=== PATIENT | female | born 1945 | race Two or more races ===

== ENCOUNTER → 2017-02-24 | Outpatient (CLI) | payer MEDICARE ==
[~2017-02-24] MED LIST: ASPI-482 PO; ATOR20TA58 PO; GLIM4TAB2 PO; INSU100C SQ; INSU300I SQ; LISI1TAB5 PO; METO25TA4 PO
[2017-02-24 12:32] LABS: BASO % 0 % (0-3); EOS % 2 % (0-3); HEMATOCRIT 39.9 % (36.0-47.0); LYMPH % 28 % (24-48); MEAN CORPUSCULAR HEMOGLOBIN 27 pg (25-35); MEAN CORPUSCULAR HGB CONC 33 g/dL (31-37); MEAN CORPUSCULAR VOLUME 84 fL (79-100); MONO % 7 % (0-9); NEUT % 63 % (31-73); PLATELET COUNT 190 x10^3/uL (140-400); RED BLOOD COUNT 4.73 x10^6/uL (3.50-5.40); RED CELL DISTRIBUTION WIDTH 15.8 % (11.5-14.5); WHITE BLOOD COUNT 7.1 x10^3/uL (4.0-11.0)
[2017-02-24 12:43] LABS: INR 1.1 (0.8-1.1); PROTHROMBIN TIME PATIENT 13.2 SEC (11.7-14.0)
[2017-02-24 12:44] LABS: ALBUMIN 3.2 g/dL (3.4-5.0); CALCIUM 8.6 mg/dL (8.5-10.1); CREATININE 0.9 mg/dL (0.6-1.0); GFR 61.2; POTASSIUM 3.3 mmol/L (3.5-5.1)
[2017-02-24 13:52] LABS: BILIRUBIN,URINE NEGATIVE (NEG); GLUCOSE,URINE NEGATIVE (NEG); NITRITE,URINE POSITIVE (NEG); PROTEIN,URINE NEGATIVE (NEG-TRACE); UROBILINOGEN,URINE 0.2 mg/dL (0.2 mg/dL)
--- NOTE | 2017-02-24 13:58 | RAD ---
PA and lateral views of the chest were obtained. History: Pre-op evaluation for right shoulder surgery Comparison: none The heart and pulmonary vasculature appear within normal limits. The lungs are clear. The pleural margins are clear. Impression: 1. No acute chest process is seen.
[2017-02-24 14:06] LABS: RBC,URINE 0 /HPF (0-2); WBC,URINE RARE /HPF (0-4)
[2017-02-24 14:07] LABS: BACTERIA,URINE FEW /HPF (0-FEW); SQUAMOUS EPITHELIAL CELL,UR FEW /LPF
== END | disposition home or self-care (01) ==
LOC: SURGPAT 11:36
PROVIDERS: ATTEND Orthopaedic Surgery
DX: Z01.818 Encounter for other preprocedural examination (principal)
CPT/HCPCS: 36415; 71020; 80048; 81001; 82040; 83036; 85025; 85610; 85651; 85730; 87086; 87641

== ENCOUNTER 2017-11-05 14:45 | Inpatient (IN) | payer MEDICARE ==
[~2017-11-05] VITALS: Ht 154.9 cm; Wt 94.8 kg
[2017-11-05 16:00] VITALS: BP 124/46
[2017-11-05] MEDS ORDERED: fentaNYL PF VIAL 100 MCG/2 ML VIAL IV PRN ×2 (16:30)
[2017-11-05] MEDS ORDERED: DEXTROSE 50% 25 GM / 50ML DISP.SYRIN. IV PRN (16:30)
[2017-11-05] MEDS: IV 1/2 NORMAL SALINE 1,000 ML IV SCH (16:51)
--- NOTE | 2017-11-05 17:26 | PDOC5 ---
CODE REPORT CODE REPORT I was called to the fifth floor for a CODE BLUE at approximately 5 PM Eyes patient received 50 g of fentanyl and then promptly lost consciousness. Never lost pulse. Apparently was not breathing very well. On my evaluation patient did have small pupils not quite pinpoint but they were small she did have some respiratory effort checked a blood sugar it was not low. The blood pressure was elevated in the 180s. placed on supplmeental oxygen the sat was 98 on nrb. EKG was done on the chart no STEMI was identified on that EKG interpreted by me. It was a sinus rhythm most likely with a PVC. Patient was given 2 doses of Narcan and actually did wake up some she was able to say her birthday can follow some commands. On further evaluation with the family it is apparent that she had a seizure history in the remote past in one family member that witnessed this event thought that there might of been some seizure activity. As of this dictation I have asked nursing staff to page primary [facility]. ECHO MYRICK MD Nov 05, 2017 17:26
[2017-11-05 17:44] LABS: BASO # 0.1 x10^3/uL (0.0-0.2); BASO % 1 % (0-3); EOS # 0.1 x10^3/uL (0.0-0.7); EOS % 1 % (0-3); HEMATOCRIT 38.2 % (36.0-47.0); HEMOGLOBIN 12.5 g/dL (12.0-15.5); LYMPH # 1.7 x10^3/uL (1.0-4.8); LYMPH % 12 % (24-48); MEAN CORPUSCULAR HEMOGLOBIN 28 pg (25-35); MEAN CORPUSCULAR HGB CONC 33 g/dL (31-37); MEAN CORPUSCULAR VOLUME 85 fL (79-100); MONO # 1.1 x10^3/uL (0.0-1.1); MONO % 8 % (0-9); NEUT # 10.8 x10^3uL (1.8-7.7); NEUT % 79 % (31-73); PLATELET COUNT 203 x10^3/uL (140-400); RED BLOOD COUNT 4.51 x10^6/uL (3.50-5.40); WHITE BLOOD COUNT 13.8 x10^3/uL (4.0-11.0)
[2017-11-05 17:57] LABS: ALBUMIN/GLOBULIN RATIO 0.7 (1.0-1.7); CALCIUM 9.2 mg/dL (8.5-10.1); CREATININE 1.2 mg/dL (0.6-1.0); GFR 43.9; POTASSIUM 3.8 mmol/L (3.5-5.1); TOTAL BILIRUBIN 0.6 mg/dL (0.2-1.0); TOTAL PROTEIN 7.4 g/dL (6.4-8.2)
[2017-11-05] MEDS ORDERED: IOHEXOL 240 MG/ML 50ML VIAL. PO ONE ×2 (18:00→19:00)
[2017-11-05] MEDS ORDERED: IOHEXOL 300 MG/ML 100ML VIAL. IV ONE ×2 (18:00→19:00)
--- NOTE | 2017-11-05 18:44 | HP ---
ADMIT DATE: 11/05/2017 CHIEF COMPLAINT AND HISTORY OF PRESENT ILLNESS: This is a 72-year-old female seen with her on the day of admission. She had been having symptoms going back in the last week of some urinary frequency, urgency and dysuria over the last day or a couple of days, she has become sick with chilling and sweating, decreased appetite and severe left flank area pain. Dipstick UA in the office showed minimal blood, but high amounts of leukocyte esterase and nitrites feeling that this was a pyelonephritis. I warned her and her that if she was not able to keep the medicines down home and doing well to call me, they did shortly thereafter within a couple or 3 hours. It was elected to admit her for IV fluids, IV antibiotics and further workup of the same. PAST MEDICAL HISTORY: Remarkable for longstanding diabetes. She has severe neuropathy. She has had a nonsignificant coronary artery disease. PAST SURGICAL HISTORY: She has had a prior right rotator cuff repair and a left shoulder surgery. She has had a right total knee replacement. She has chronic back pain. She has had some vertigo off and on. MEDICATIONS: Brought with the patient, listed on the computer and have been addressed. ALLERGIES: She has no known drug allergies. SOCIAL HISTORY: She is , nonsmoker, nondrinker, lives at home with her , does not abuse alcohol. FAMILY HISTORY: Noncontributory. REVIEW OF SYSTEMS: As mentioned above. PHYSICAL EXAMINATION: GENERAL: She is a well-developed, well-nourished, female in significant amount of pain. VITAL SIGNS: Stable. She is afebrile. THROAT: Remarkable for glasses. NECK: Supple without adenopathy or thyromegaly. CHEST: Clear to auscultation and percussion. HEART: Regular rate and rhythm without S3, S4 or murmur. ABDOMEN: Soft, nontender, without hepatosplenomegaly or masses. She has marked left flank tenderness. EXTREMITIES: Without cyanosis, clubbing, significant edema. NEUROLOGIC: She is intact. LABORATORY DATA: Initial laboratory shows a leukocytosis with a left shift. Her white count is 13,800. Chemistry showed creatinine of 1.2, blood sugar of 214, albumin of 3. A urinalysis is pending. IMPRESSION: Severe left flank pain, likely pyelonephritis. PLAN: The patient will be admitted. The hydration and IV antibiotics will be obtained after UA and culture and sensitivity is obtained. Pain will be controlled and the patient will be monitored, managed and treated appropriately. GERI ANGUIANO MD DR: ENRICO/jessica JOB#: [id number] / [id number]
[2017-11-05] MEDS: INSULIN LISPRO 300 UNITS/3 ML INSULN.PEN. SQ SCH (18:49)
[2017-11-05 19:00] VITALS: BP 137/54
[2017-11-05] MEDS ORDERED: CONTRAST GIVEN. MC PRN (19:00)
[2017-11-05] MEDS ORDERED: NITR0.4T22 SL (19:57)
[2017-11-05] MEDS ORDERED: NITROGLYCERIN SUBLINGUAL 0.4 MG BOTTLE OF 25. SL PRN (20:15)
--- NOTE | 2017-11-05 20:59 | RAD ---
PQRS Compliance statement: One or more of the following individualized dose reduction techniques were utilized for this examination: 1. Automated exposure control. 2. Adjustment of the mA and/or kV according to patient size. 3. Use of iterative reconstruction technique. Indication:POST CODE POSSIBLE SEIZURE NO PREV TECHNIQUE: CT head without IV contrast COMPARISON:None FINDINGS: No pathologic extra-axial or intra-axial fluid collection. The ventricles and basal cisterns are within normal limits. Mild cerebral atrophy. No acute intracranial bleed. No focal loss of rodriguez-white differentiation. Significant atherosclerotic disease is seen in the distal basilar artery. No suspicious calvarial lesions. Visualized paranasal sinuses and mastoid air cells are clear. IMPRESSION: No acute intracranial process. If concern for acute ischemic stroke is high, please consider MRI brain. Electronically signed by: Mundo Wong DO (11/05/2017 8:56 PM) [facility]
--- NOTE | 2017-11-05 21:05 | RAD ---
PQRS Compliance statement: One or more of the following individualized dose reduction techniques were utilized for this examination: 1. Automated exposure control. 2. Adjustment of the mA and/or kV according to patient size. 3. Use of iterative reconstruction technique. Indication:POST CODE POSSIBLE SEIZURE NO PREV N/V TECHNIQUE: CT abdomen and pelvis with IV contrast with multiplanar reformats. COMPARISON: None FINDINGS: Heart is normal in size. No pericardial or pleural effusion. Mild bibasilar subsegmental atelectasis. Liver, spleen, pancreas, adrenals within normal limits. Right kidney within normal limits. 1.4 cm oval-shaped nonobstructing stone is seen in the inferior collecting system of the left kidney. Left kidney demonstrates diffuse edema with mild dilation of the collecting system. Nonobstructing left ureteral stone. Perinephric inflammatory changes seen. No enlarged retroperitoneal or pelvic adenopathy. Normal appendix. No bowel obstruction. Diffuse sigmoid and descending colon diverticulosis. No pneumoperitoneum. Urinary bladder within normal limits. Status post hysterectomy. No suspicious bony lesion. IMPRESSION: 1. Nonobstructing large left renal stone with diffuse left renal edema and perinephric inflammation with dilated collecting system without obstructing left ureteral stone. Findings may suggest recently passed stone or diffuse pyelonephritis. Clinically correlate. Electronically signed by: Mundo Wong DO (11/05/2017 9:02 PM) [facility]
[2017-11-05] MEDS: HYDROcodone/APAP 5/325MG 1 TAB TABLET PO PRN (21:27)
[2017-11-05] MEDS: ATORVASTATIN CALCIUM 20 MG TABLET PO SCH (21:27)
[2017-11-05] MEDS: METOPROLOL TART IMMED RELEASE 25 MG TABLET. PO SCH (21:27)
[2017-11-05 22:28] LABS: BILIRUBIN,URINE NEGATIVE (NEG); CLARITY,URINE CLEAR; COLOR,URINE YELLOW; NITRITE,URINE POSITIVE (NEG); PROTEIN,URINE NEGATIVE (NEG-TRACE)
[2017-11-05 22:36] LABS: BACTERIA,URINE FEW /HPF (0-FEW); RBC,URINE TNTC /HPF (0-2); SQUAMOUS EPITHELIAL CELL,UR FEW /LPF
[2017-11-05 23:00] VITALS: BP 136/58
[2017-11-06] VITALS (9 sets, daily range): BP systolic 76–139; BP diastolic 35–93
[2017-11-06] MEDS: IV 1/2 NORMAL SALINE 1,000 ML IV SCH ×2 (05:58→21:45)
[2017-11-06] MEDS: ASPIRIN ENTERIC COATED 81 MG TABLET.DR. PO SCH (08:31)
[2017-11-06] MEDS: GLIMEPIRIDE 2 MG TABLET. PO SCH (08:31)
[2017-11-06] MEDS: HYDROcodone/APAP 5/325MG 1 TAB TABLET PO PRN (08:35)
[2017-11-06] MEDS: INSULIN LISPRO 300 UNITS/3 ML INSULN.PEN. SQ SCH ×3 (08:41→17:08)
[2017-11-06] MEDS: INSULIN GLARGINE 300 UNITS/3 ML INSULN.PEN. SQ SCH (09:24)
[2017-11-06] MEDS: hydroCHLOROthiazide 12.5 MG CAPSULE PO SCH (11:48)
[2017-11-06] MEDS: METOPROLOL TART IMMED RELEASE 25 MG TABLET. PO SCH ×2 (11:49→21:00)
[2017-11-06] MEDS: LISINOPRIL 20 MG TABLET PO SCH (11:50)
--- NOTE | 2017-11-06 13:15 | PN ---
DATE: 11/06/2017 LOCATION: She is in room 586. SUBJECTIVE: The patient is awake and alert. Family is at bedside. She states that her pain has definitely decreased from admission, but still is not good. OBJECTIVE: VITAL SIGNS: Stable. She has had a T-max of 99.9. CHEST: Clear. HEART: Regular. ABDOMEN: Benign, but still significant left flank tenderness. LABORATORY DATA: White count is 13,800 on admission. Sugars are fair. Urine on admission consistent with UTI. She did have a spell yesterday after fentanyl, likely related to it, with decreased level of responsiveness. She had a CT head afterwards. It is negative and she is at her baseline for sure today. CT of the abdomen and pelvis showed left renal edema, consistent with either stone or pyelonephritis. Clinically, this is pyelonephritis, although she does have a large non-obstructive stone present in addition. IMPRESSION: 1. Pyelonephritis with severe left flank pain. 2. Diabetes. 3. Leukocytosis. PLAN: Continue present antibiotics pending cultures. I feel like she has improved; so hopefully, we have her on good coverage for the same. Pain control as needed with hydrocodone, which she is tolerating and the patient will be monitored, managed and treated appropriately. GERI ANGUIANO MD DR: ENRICO/jessica JOB#: [id number] / [id number]
[2017-11-06] MEDS: ONDANSETRON PF 4 MG/2 ML VIAL. IV PRN (15:51)
[2017-11-06] MEDS: ACETAMINOPHEN 325 MG TABLET. PO PRN (19:33)
[2017-11-06] MEDS: LACTOBACILLUS RHAMNOSUS GG 1 CAPSULE. PO SCH (20:41)
[2017-11-06] MEDS: ATORVASTATIN CALCIUM 20 MG TABLET PO SCH (20:41)
[2017-11-07 03:00] VITALS: BP 91/50
[2017-11-07 07:00] VITALS: BP 127/61
[2017-11-07] MEDS: INSULIN LISPRO 300 UNITS/3 ML INSULN.PEN. SQ SCH ×3 (08:00→16:26)
[2017-11-07] MEDS: ACETAMINOPHEN 325 MG TABLET. PO PRN ×2 (08:11→17:49)
[2017-11-07] MEDS: GLIMEPIRIDE 2 MG TABLET. PO SCH (08:12)
[2017-11-07] MEDS: ASPIRIN ENTERIC COATED 81 MG TABLET.DR. PO SCH (08:12)
[2017-11-07] MEDS: LACTOBACILLUS RHAMNOSUS GG 1 CAPSULE. PO SCH ×2 (08:14→20:55)
[2017-11-07] MEDS: IV 1/2 NORMAL SALINE 1,000 ML IV SCH ×2 (08:15→22:07)
[2017-11-07] MEDS: INSULIN GLARGINE 300 UNITS/3 ML INSULN.PEN. SQ SCH (08:27)
[2017-11-07] MEDS: hydroCHLOROthiazide 12.5 MG CAPSULE PO SCH (09:00)
[2017-11-07] MEDS: LISINOPRIL 20 MG TABLET PO SCH (09:00)
[2017-11-07] MEDS: METOPROLOL TART IMMED RELEASE 25 MG TABLET. PO SCH ×2 (09:00→20:56)
[2017-11-07] MEDS: HYDROcodone/APAP 5/325MG 1 TAB TABLET PO PRN ×2 (10:20→22:08)
[2017-11-07 11:55] VITALS: BP 104/48
[2017-11-07 15:50] VITALS: BP 125/45
[2017-11-07 19:00] VITALS: BP 105/43
[2017-11-07] MEDS: ATORVASTATIN CALCIUM 20 MG TABLET PO SCH (20:55)
--- NOTE | 2017-11-07 21:44 | PN ---
DATE: 11/07/2017 LOCATION: She is in room 586. SUBJECTIVE: The patient is awake, alert. Family is at bedside, daughter has many questions and approximately 30 minutes were spent at bedside answering daughter's questions regarding her pyelonephritis and why she would have headaches with this and myalgias with this. We went through her neuropathy. We went through her balance. We went through her longstanding history of not taking her medicines right and obviously she and her are confused on what medications they should be taking. Hopefully, this was a productive use of time. OBJECTIVE: VITAL SIGNS: Stable. T-max is 100. CHEST: Clear. HEART: Regular. ABDOMEN: With ongoing left flank tenderness, but decreasing on a daily basis. EXTREMITIES: Unremarkable. LABORATORY DATA: Urine culture is not on the computer, but I have called the lab and it is pending. It was sent out the following day due to being batched and the results will be coming in at some point. She does have decreasing pain subjectively on a daily basis, but does again have the headache as well as myalgias. ASSESSMENT: 1. Pyelonephritis, clinically improving with pending urine cultures. 2. Diabetes. 3. Leukocytosis. PLAN: Continue present antibiotics. Await final cultures with plans to follow. GERI ANGUIANO MD DR: ENRICO/jessica JOB#: [id number] / [id number]
[2017-11-07] MEDS: ONDANSETRON PF 4 MG/2 ML VIAL. IV PRN (22:08)
[2017-11-07 23:00] VITALS: BP 107/40
[2017-11-08 03:00] VITALS: BP 92/46
[2017-11-08 07:00] VITALS: BP 107/54
[2017-11-08] MEDS: LACTOBACILLUS RHAMNOSUS GG 1 CAPSULE. PO SCH ×2 (08:08→20:28)
[2017-11-08] MEDS: GLIMEPIRIDE 2 MG TABLET. PO SCH (08:08)
[2017-11-08] MEDS: ASPIRIN ENTERIC COATED 81 MG TABLET.DR. PO SCH (08:11)
[2017-11-08] MEDS: METOPROLOL TART IMMED RELEASE 25 MG TABLET. PO SCH ×2 (09:00→20:28)
[2017-11-08] MEDS: hydroCHLOROthiazide 12.5 MG CAPSULE PO SCH (09:00)
[2017-11-08] MEDS: LISINOPRIL 20 MG TABLET PO SCH (09:00)
[2017-11-08] MEDS: ACETAMINOPHEN 325 MG TABLET. PO PRN ×2 (09:19→15:00)
[2017-11-08] MEDS: INSULIN LISPRO 300 UNITS/3 ML INSULN.PEN. SQ SCH ×3 (09:27→16:55)
[2017-11-08] MEDS: INSULIN GLARGINE 300 UNITS/3 ML INSULN.PEN. SQ SCH (09:28)
[2017-11-08 11:03] VITALS: BP 96/40
--- NOTE | 2017-11-08 13:42 | PN ---
DATE: 11/08/2017 LOCATION: She is in room 586. SUBJECTIVE: The patient is awake, alert, is at bedside. She did eat part of her breakfast this morning, but still admits to anorexia, still has ongoing some myalgias as well as headache off and on. Pain in her left flank from the kidney is decreasing on a daily basis, however. OBJECTIVE: VITAL SIGNS: Stable. She has been afebrile the last 48 hours. Blood pressures remain on the low side. Sugars have been good. Urine culture is still pending. CHEST: Clear. HEART: Regular. ABDOMEN: With ongoing left flank tenderness, but less on a daily basis. EXTREMITIES: Stable. IMPRESSION: 1. Pyelonephritis, clinically improving with pending urine cultures. 2. Diabetes. 3. Leukocytosis. PLAN: Continue present antibiotics. Await final cultures to plan discharge. GERI ANGUIANO MD DR: ENRICO/jessica JOB#: [id number] / [id number]
[2017-11-08] MEDS: IV 1/2 NORMAL SALINE 1,000 ML IV SCH (14:43)
[2017-11-08 15:00] VITALS: BP 133/44
[2017-11-08 19:00] VITALS: BP 136/42
[2017-11-08] MEDS: ATORVASTATIN CALCIUM 20 MG TABLET PO SCH (20:28)
[2017-11-08] MEDS: ONDANSETRON PF 4 MG/2 ML VIAL. IV PRN (21:41)
[2017-11-08 23:00] VITALS: BP 130/44
[2017-11-09 03:00] VITALS: BP 132/60
[2017-11-09 06:55] VITALS: BP 135/58
[2017-11-09] MEDS: INSULIN LISPRO 300 UNITS/3 ML INSULN.PEN. SQ SCH ×3 (08:00→17:00)
[2017-11-09] MEDS: hydroCHLOROthiazide 12.5 MG CAPSULE PO SCH (08:26)
[2017-11-09] MEDS: LISINOPRIL 20 MG TABLET PO SCH (08:27)
[2017-11-09] MEDS: GLIMEPIRIDE 2 MG TABLET. PO SCH (08:28)
[2017-11-09] MEDS: ASPIRIN ENTERIC COATED 81 MG TABLET.DR. PO SCH (08:28)
[2017-11-09] MEDS: LACTOBACILLUS RHAMNOSUS GG 1 CAPSULE. PO SCH ×2 (08:28→20:07)
[2017-11-09 08:34] LABS: BASO # 0.1 x10^3/uL (0.0-0.2); BASO % 1 % (0-3); EOS # 0.3 x10^3/uL (0.0-0.7); EOS % 4 % (0-3); HEMATOCRIT 32.2 % (36.0-47.0); LYMPH # 2.5 x10^3/uL (1.0-4.8); LYMPH % 29 % (24-48); MEAN CORPUSCULAR HEMOGLOBIN 29 pg (25-35); MEAN CORPUSCULAR HGB CONC 34 g/dL (31-37); MEAN CORPUSCULAR VOLUME 84 fL (79-100); MONO # 0.9 x10^3/uL (0.0-1.1); MONO % 10 % (0-9); NEUT # 4.9 x10^3uL (1.8-7.7); NEUT % 56 % (31-73); PLATELET COUNT 198 x10^3/uL (140-400); RED BLOOD COUNT 3.83 x10^6/uL (3.50-5.40); RED CELL DISTRIBUTION WIDTH 14.9 % (11.5-14.5); WHITE BLOOD COUNT 8.8 x10^3/uL (4.0-11.0)
[2017-11-09] MEDS: IV 1/2 NORMAL SALINE 1,000 ML IV SCH ×2 (08:34→13:50)
[2017-11-09 08:46] LABS: CALCIUM 8.2 mg/dL (8.5-10.1); CREATININE 0.9 mg/dL (0.6-1.0); GFR 61.2; POTASSIUM 3.2 mmol/L (3.5-5.1)
[2017-11-09 11:00] VITALS: BP 154/32
[2017-11-09] MEDS: METOPROLOL TART IMMED RELEASE 25 MG TABLET. PO SCH ×2 (12:13→20:10)
[2017-11-09] MEDS: INSULIN GLARGINE 300 UNITS/3 ML INSULN.PEN. SQ SCH (12:22)
[2017-11-09] MEDS ORDERED: POTASSIUM CHLORIDE 20 MEQ TABLET.ER. PO ONE (13:30)
[2017-11-09 15:55] VITALS: BP 124/40
[2017-11-09 19:00] VITALS: BP 131/40
[2017-11-09] MEDS: ATORVASTATIN CALCIUM 20 MG TABLET PO SCH (20:07)
[2017-11-09 23:00] VITALS: BP 129/46
--- NOTE | 2017-11-10 00:25 | PN ---
DATE: 11/09/2017 SUBJECTIVE: The patient is awake, alert. is at bedside. She is just finishing breakfast and feels like for the first time in a couple of weeks, she had an appetite. She is a little bit nauseated after eating. Her pain continues to improve on a daily basis in the left flank area. OBJECTIVE: VITAL SIGNS: Stable. She is afebrile. Sugars are good. Initial urine culture is looking like greater than 100,000 coagulase negative staph. CHEST: Clear. HEART: Regular. ABDOMEN: Flank with decreasing tenderness on a daily basis. ASSESSMENT: 1. Pyelonephritis, clinically improving with pending cultures. 2. Diabetes. 3. Leukocytosis. PLAN: Continue present antibiotics. Await final cultures. We will recheck labs in the morning prior to hopefully discharge and will expect to have final cultures back by then hopefully GERI ANGUIANO MD DR: ENRICO/jessica JOB#: [id number] / [id number]
[2017-11-10] MEDS: HYDROcodone/APAP 5/325MG 1 TAB TABLET PO PRN (01:16)
[2017-11-10] MEDS: IV 1/2 NORMAL SALINE 1,000 ML IV SCH ×2 (01:17→16:30)
[2017-11-10 03:00] VITALS: BP 133/49
[2017-11-10 07:00] VITALS: BP 128/53
[2017-11-10] MEDS: hydroCHLOROthiazide 12.5 MG CAPSULE PO SCH (08:37)
[2017-11-10] MEDS: LISINOPRIL 20 MG TABLET PO SCH (08:37)
[2017-11-10] MEDS: METOPROLOL TART IMMED RELEASE 25 MG TABLET. PO SCH ×2 (08:37→20:26)
[2017-11-10] MEDS: LACTOBACILLUS RHAMNOSUS GG 1 CAPSULE. PO SCH ×2 (08:37→20:26)
[2017-11-10] MEDS: GLIMEPIRIDE 2 MG TABLET. PO SCH (08:38)
[2017-11-10] MEDS: INSULIN LISPRO 300 UNITS/3 ML INSULN.PEN. SQ SCH ×3 (08:42→16:58)
[2017-11-10] MEDS: INSULIN GLARGINE 300 UNITS/3 ML INSULN.PEN. SQ SCH (08:43)
[2017-11-10 10:53] LABS: BASO # 0.1 x10^3/uL (0.0-0.2); BASO % 1 % (0-3); EOS # 0.2 x10^3/uL (0.0-0.7); EOS % 4 % (0-3); HEMATOCRIT 31.8 % (36.0-47.0); HEMOGLOBIN 10.7 g/dL (12.0-15.5); LYMPH # 1.9 x10^3/uL (1.0-4.8); LYMPH % 30 % (24-48); MEAN CORPUSCULAR HEMOGLOBIN 29 pg (25-35); MEAN CORPUSCULAR HGB CONC 34 g/dL (31-37); MEAN CORPUSCULAR VOLUME 85 fL (79-100); MONO # 0.7 x10^3/uL (0.0-1.1); MONO % 11 % (0-9); NEUT # 3.5 x10^3uL (1.8-7.7); NEUT % 54 % (31-73); PLATELET COUNT 197 x10^3/uL (140-400); RED BLOOD COUNT 3.74 x10^6/uL (3.50-5.40); RED CELL DISTRIBUTION WIDTH 15.1 % (11.5-14.5); WHITE BLOOD COUNT 6.5 x10^3/uL (4.0-11.0)
[2017-11-10 10:59] VITALS: BP 132/82
[2017-11-10 11:13] LABS: CALCIUM 8.4 mg/dL (8.5-10.1); GFR 54.2; POTASSIUM 3.7 mmol/L (3.5-5.1)
[2017-11-10 15:00] VITALS: BP 109/56
[2017-11-10 19:00] VITALS: BP 154/50
[2017-11-10] MEDS: SMZ/TMP 800/160MG TABLET. PO SCH (20:25)
[2017-11-10] MEDS: ACETAMINOPHEN 325 MG TABLET. PO PRN (20:26)
[2017-11-10] MEDS: ATORVASTATIN CALCIUM 20 MG TABLET PO SCH (20:26)
--- NOTE | 2017-11-10 22:10 | PN ---
DATE: 11/10/2017 LOCATION: She is in room 567. SUBJECTIVE: The patient is awake, alert, is in attendance. She did have some flank pain, which kept her awake part of the night, but overall it is getting better on a daily basis. LABORATORY DATA: White count has returned to normal at 8800. Sugars are good. Potassium was 3.2 yesterday and replaced and we will recheck it again in the morning. There is still no final report available on urine culture. OBJECTIVE: VITAL SIGNS: Stable. She has been afebrile now for a couple of days. CHEST: Clear. HEART: Regular. ABDOMEN: Benign, still some mild flank tenderness on palpation. ASSESSMENT: 1. Pyelonephritis, clinically improving. 2. Diabetes, good control. 3. Leukocytosis, improved. 4. Hypokalemia, replaced. PLAN: Continue present antibiotics. Regardless of the final cultures by tomorrow, I am going to discharge her on p.o. Levaquin as she has improved throughout the stay and she would have had at that point in time enough IV antibiotics hopefully that she will do well at home. We will recheck in addition potassium in the morning. GERI ANGUIANO MD DR: ENRICO/jessica JOB#: [id number] / [id number]
[2017-11-10 22:33] VITALS: BP 136/58
[2017-11-11 03:00] VITALS: BP 136/59
[2017-11-11] MEDS: IV 1/2 NORMAL SALINE 1,000 ML IV SCH ×2 (04:48→20:22)
[2017-11-11 06:18] LABS: CALCIUM 8.7 mg/dL (8.5-10.1); CREATININE 0.9 mg/dL (0.6-1.0); GFR 61.2; POTASSIUM 3.3 mmol/L (3.5-5.1)
[2017-11-11 07:15] VITALS: BP 119/55
[2017-11-11] MEDS: INSULIN LISPRO 300 UNITS/3 ML INSULN.PEN. SQ SCH ×3 (08:00→17:00)
[2017-11-11] MEDS: LACTOBACILLUS RHAMNOSUS GG 1 CAPSULE. PO SCH ×2 (08:06→20:20)
[2017-11-11] MEDS: GLIMEPIRIDE 2 MG TABLET. PO SCH (08:06)
[2017-11-11] MEDS: LISINOPRIL 20 MG TABLET PO SCH (08:07)
[2017-11-11] MEDS: hydroCHLOROthiazide 12.5 MG CAPSULE PO SCH (08:07)
[2017-11-11] MEDS: ASPIRIN ENTERIC COATED 325 MG TABLET.DR. PO SCH (08:08)
[2017-11-11] MEDS: METOPROLOL TART IMMED RELEASE 25 MG TABLET. PO SCH ×3 (08:09→20:21)
[2017-11-11] MEDS: INSULIN GLARGINE 300 UNITS/3 ML INSULN.PEN. SQ SCH (08:16)
[2017-11-11] MEDS ORDERED: POTASSIUM CHLORIDE 20 MEQ TABLET.ER. PO ONE (08:45)
[2017-11-11] MEDS: SMZ/TMP 800/160MG TABLET. PO SCH ×2 (09:03→20:21)
--- NOTE | 2017-11-11 09:54 | PDOC2 ---
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 Soliz Identification/Chief Complaint Chief Complaint UTI/Non obstructive kidney stone Source Source: Caregiver, Chart review, Patient History of Present Illness Reason for Visit: Pt admitted under Dr. Barth service for UTI and non obstructive kidney stone. Today she woudl ,like to go home but continues to be troubled by left flank pain and left lower quadrant pain that is constant and 5-6/10, tolerable but annoying. She denies dysuria, hematuria or difficulty emptying her bladder and has not seen any stones or sand come out of her urine recently. She has had kidney stones four other times in her lifetime. The last time she had one was about seven years ago and it had to be "blasted" by a urologist. She does not remember the name of the urologist or where this was done. Past Medical History Renal/: Other (kidney stones, 4 times prior to this one instance, 5 times total) Endocrine: Diabetes Grav: 5 Para: 5 Past Surgical History Past Surgical History: Other (7 years ago had lithtripsy for kidney stones. ) Social History No ALCOHOL: none Drugs: None Current Problem List Problems: (1) Kidney stone Current Medications Current Medications Current Medications Aspirin (Ecotrin) 325 mg DAILYWBKFT PO Last administered on 11/11/17at 08:08; Start 11/11/17 at 08:00 Levofloxacin (Levaquin) 500 mg HS PO ; Start 11/10/17 at 21:00; Stop 11/10/17 at 21:00; Status DC Potassium Chloride (Klor-Con) 20 meq 1X ONCE PO Last administered on 11/11/17at 09:03; Start 11/11/17 at 08:45; Stop 11/11/17 at 08:50; Status DC Trimethoprim/ Sulfamethoxazole (Bactrim Ds) 1 tab BID PO Last administered on at 09:03; Start 11/10/17 at 21:00 Allergies Allergies: Coded Allergies: fentanyl (Verified Allergy, Severe, 11/06/17) Patient became unresponsive after dose of fentanyl given ROS Review Of Systems: CONSTITUTIONAL: No fever or chills EYES: No recent changes SKIN: No rash or itching CARDIOVASCULAR: No chest pain, syncope, palpitations, or edema RESPIRATORY: No SOB or cough GASTROINTESTINAL: No nausea, vomiting or abdominal pain NEUROLOGICAL: No headaches or weakness ENDOCRINE: No cold or heat intolerance GENITOURINARY: No urgency or frequency of urination MUSCULOSKELETAL: + left sided flank pain LYMPHATICS: No enlarged lymph nodes PSYCHIATRIC: No anxiety or depression Physical Exam Physical Exam: General: Pleasant, no acute distress, well groomed Eyes: conjunctiva anicteric, eyes full range of motion ENT: moist oral mucosa, normal dentition Neck: Trachea midline, no masses Respiratory: unlabored breathing, not using accessory muscles Abdomen: tender left lower quadrant, left flank pain, no right flank pain or pain in the right abdomen. Skin: no rashes or skin lesions on visualized skin Psych: normal mood, affect. Alert and oriented x 3. Vitals VITALS Vital Signs Date Time Temp Pulse Resp B/P (MAP) Pulse Ox O2 Delivery O2 Flow Rate FiO2 11/11/17 08:09 55 136/48 11/11/17 08:00 Room Air 11/11/17 07:15 98.3 18 96 98.3 Labs Labs Laboratory Tests Test 11/09/17 12:11 11/09/17 16:37 11/09/17 20:14 11/10/17 07:23 Glucose (Fingerstick) 152 mg/dL (70-99) 101 mg/dL (70-99) 100 mg/dL (70-99) 205 mg/dL (70-99) Test 11/10/17 10:00 11/10/17 11:36 11/10/17 16:35 11/10/17 20:30 White Blood Count 6.5 x10^3/uL (4.0-11.0) Red Blood Count 3.74 x10^6/uL (3.50-5.40) Hemoglobin 10.7 g/dL (12.0-15.5) Hematocrit 31.8 % (36.0-47.0) Mean Corpuscular Volume 85 fL (79-100) Mean Corpuscular Hemoglobin 29 pg (25-35) Mean Corpuscular Hemoglobin Concent 34 g/dL (31-37) Red Cell Distribution Width 15.1 % (11.5-14.5) Platelet Count 197 x10^3/uL (140-400) Neutrophils (%) (Auto) 54 % (31-73) Lymphocytes (%) (Auto) 30 % (24-48) Monocytes (%) (Auto) 11 % (0-9) Eosinophils (%) (Auto) 4 % (0-3) Basophils (%) (Auto) 1 % (0-3) Neutrophils # (Auto) 3.5 x10^3uL (1.8-7.7) Lymphocytes # (Auto) 1.9 x10^3/uL (1.0-4.8) Monocytes # (Auto) 0.7 x10^3/uL (0.0-1.1) Eosinophils # (Auto) 0.2 x10^3/uL (0.0-0.7) Basophils # (Auto) 0.1 x10^3/uL (0.0-0.2) Sodium Level 138 mmol/L (136-145) Potassium Level 3.7 mmol/L (3.5-5.1) Chloride Level 105 mmol/L (98-107) Carbon Dioxide Level 28 mmol/L (21-32) Anion Gap 5 (6-14) Blood Urea Nitrogen 9 mg/dL (7-20) Creatinine 1.0 mg/dL (0.6-1.0) Estimated GFR (Cockcroft-Gault) 54.2 Glucose Level 174 mg/dL (70-99) Calcium Level 8.4 mg/dL (8.5-10.1) Glucose (Fingerstick) 88 mg/dL (70-99) 137 mg/dL (70-99) 75 mg/dL (70-99) Test 11/11/17 04:46 11/11/17 07:59 Sodium Level 140 mmol/L (136-145) Potassium Level 3.3 mmol/L (3.5-5.1) Chloride Level 108 mmol/L (98-107) Carbon Dioxide Level 25 mmol/L (21-32) Anion Gap 7 (6-14) Blood Urea Nitrogen 10 mg/dL (7-20) Creatinine 0.9 mg/dL (0.6-1.0) Estimated GFR (Cockcroft-Gault) 61.2 Glucose Level 90 mg/dL (70-99) Calcium Level 8.7 mg/dL (8.5-10.1) Glucose (Fingerstick) 111 mg/dL (70-99) Laboratory Tests Test 11/10/17 10:00 11/10/17 11:36 11/10/17 16:35 11/10/17 20:30 White Blood Count 6.5 x10^3/uL (4.0-11.0) Red Blood Count 3.74 x10^6/uL (3.50-5.40) Hemoglobin 10.7 g/dL (12.0-15.5) Hematocrit 31.8 % (36.0-47.0) Mean Corpuscular Volume 85 fL (79-100) Mean Corpuscular Hemoglobin 29 pg (25-35) Mean Corpuscular Hemoglobin Concent 34 g/dL (31-37) Red Cell Distribution Width 15.1 % (11.5-14.5) Platelet Count 197 x10^3/uL (140-400) Neutrophils (%) (Auto) 54 % (31-73) Lymphocytes (%) (Auto) 30 % (24-48) Monocytes (%) (Auto) 11 % (0-9) Eosinophils (%) (Auto) 4 % (0-3) Basophils (%) (Auto) 1 % (0-3) Neutrophils # (Auto) 3.5 x10^3uL (1.8-7.7) Lymphocytes # (Auto) 1.9 x10^3/uL (1.0-4.8) Monocytes # (Auto) 0.7 x10^3/uL (0.0-1.1) Eosinophils # (Auto) 0.2 x10^3/uL (0.0-0.7) Basophils # (Auto) 0.1 x10^3/uL (0.0-0.2) Sodium Level 138 mmol/L (136-145) Potassium Level 3.7 mmol/L (3.5-5.1) Chloride Level 105 mmol/L (98-107) Carbon Dioxide Level 28 mmol/L (21-32) Anion Gap 5 (6-14) Blood Urea Nitrogen 9 mg/dL (7-20) Creatinine 1.0 mg/dL (0.6-1.0) Estimated GFR (Cockcroft-Gault) 54.2 Glucose Level 174 mg/dL (70-99) Calcium Level 8.4 mg/dL (8.5-10.1) Glucose (Fingerstick) 88 mg/dL (70-99) 137 mg/dL (70-99) 75 mg/dL (70-99) Test 11/11/17 04:46 11/11/17 07:59 Sodium Level 140 mmol/L (136-145) Potassium Level 3.3 mmol/L (3.5-5.1) Chloride Level 108 mmol/L (98-107) Carbon Dioxide Level 25 mmol/L (21-32) Anion Gap 7 (6-14) Blood Urea Nitrogen 10 mg/dL (7-20) Creatinine 0.9 mg/dL (0.6-1.0) Estimated GFR (Cockcroft-Gault) 61.2 Glucose Level 90 mg/dL (70-99) Calcium Level 8.7 mg/dL (8.5-10.1) Glucose (Fingerstick) 111 mg/dL (70-99) Images Images CT scan 11/05/17 IMPRESSION: 1. Nonobstructing large left renal stone with diffuse left renal edema and perinephric inflammation with dilated collecting system without obstructing left ureteral stone. Findings may suggest recently passed stone or diffuse pyelonephritis. Clinically correlate. Assessment/Plan Assessment/Plan Right flank pain and UTI: pt was on the wrong antibiotic for a few days and has just now been switched to the correct one. Her condition should improve with this CT scan from a few days shows some perinephric edema and patient continues to have flank pain and LLQ pain despite days of treatment-Considering her history of stones and recent CT findings, we will get a KUB and Renal US to check progress with regard to this. Potential discharge later today depending upon imaging. Pt given Dr. Solis's card, all questions answered A follow up appointment with Dr. Solis has been secured to discuss stone prevention with her on 12/02/17 at 1100 am. Pt given appointment card and new patient paperwork. ALEKSEY SOLIS MD 11/11/17 1514: UROLOGY CONSULT Assessment/Plan Assessment/Plan Patient seen and examined. Agree with assessment and plan. Flank pain and mild hydronephrosis likely due to left pyelonephritis - continue current antibiotic treatment. Non-obstructive 1,1 cm left kidney stone would likely benefit from treatment after infection treatment completed. Will discuss further at followup visit in approx 2 weeks - probably will proceed with outpatient ESWL. REGINA POASDAS APRN Nov 11, 2017 09:54 ALEKSEY SOLIS MD Nov 11, 2017 15:14
[2017-11-11 10:57] VITALS: BP 136/49
--- NOTE | 2017-11-11 12:00 | RAD ---
Portable abdomen, 11/11/2017: HISTORY: Check kidney stone Gas is present in large and small bowel in a nonspecific pattern. Numerous colonic diverticula are evident in the descending colon. Surgical clips are present in the right upper quadrant. There is a 1.1 cm intrarenal calculus on the left as also noted on the 11/05/2017 CT study. No radiopaque ureteral calculus is identified. Degenerative changes are evident in the lumbar spine. IMPRESSION: 1. Unchanged moderate sized left intrarenal calculus. 2. Extensive colonic diverticulosis. Electronically signed by: Farhan Haines MD (11/11/2017 11:56 AM) [facility]
[2017-11-11 14:35] VITALS: BP 118/43
--- NOTE | 2017-11-11 18:27 | RAD ---
Renal ultrasound 11/11/2017 CLINICAL HISTORY: Left renal calculus. History of left-sided obstruction. TECHNIQUE: A real-time ultrasound examination of both kidneys and the urinary bladder was performed. Multiple images were obtained. FINDINGS: Comparison is made to the patient's CT scan of the abdomen and pelvis dated 11/05/2017. Both kidneys are within normal limits in size. The right kidney measures 10.6 cm in length. The left kidney measures 11.0 cm in length. A 1 cm nonobstructing calculus is seen involving the lower pole of the left kidney, unchanged. The hydronephrosis seen on the previous examination has largely resolved. No focal abnormality of the right kidney is seen. The urinary bladder is distended with urine. Bilateral ureteral jets are seen which implies patency of both collecting systems. No abnormality of the urinary bladder is noted. IMPRESSION: Interval improvement in the left hydronephrosis. Electronically signed by: Ghulam Romero MD (11/11/2017 6:24 PM) [id number]
[2017-11-11 19:00] VITALS: BP 137/52
--- NOTE | 2017-11-11 19:54 | PN ---
DATE: 11/11/2017 LOCATION: She is in room 567. SUBJECTIVE: The patient is awake, alert, is in attendance. Vital signs are stable. She is afebrile. White count is down to 6500. Potassium is 3.3 this morning, is going to be replaced. Coagulase negative Staph is in the final culture result off of her urine and interestingly has resistant to Levaquin from which she has been improving since admission. She was transitioned to Bactrim yesterday with these results available and I have asked Urology to see her as I am a little bit confused because of the large stone, but the diffuse kidney edema, which we have been treating his pyelo, which clinically she has and has been improving, but again has not been on appropriate antibiotics per sensitivities. OBJECTIVE: CHEST: Clear. HEART: Regular. ABDOMEN: Still a little bit of flank tenderness, but decreasing on a daily basis. IMPRESSION: 1. Pyelonephritis, clinically improving with antibiotic disparity as above. 2. Hypokalemia. Will be replaced. PLAN: Await Urology consultation and home on Bactrim at that point if they feel comfortable. GERI ANGUIANO MD DR: ENRICO/jessica JOB#: [id number] / [id number]
[2017-11-11] MEDS: ATORVASTATIN CALCIUM 20 MG TABLET PO SCH (20:21)
[2017-11-11 22:49] VITALS: BP 141/62
[2017-11-12 02:40] VITALS: BP 125/69
[2017-11-12 07:00] VITALS: BP 114/50
[2017-11-12] MEDS: INSULIN LISPRO 300 UNITS/3 ML INSULN.PEN. SQ SCH (08:00)
[2017-11-12] MEDS: GLIMEPIRIDE 2 MG TABLET. PO SCH (08:25)
[2017-11-12] MEDS: ASPIRIN ENTERIC COATED 325 MG TABLET.DR. PO SCH (08:25)
[2017-11-12] MEDS: LACTOBACILLUS RHAMNOSUS GG 1 CAPSULE. PO SCH (08:26)
[2017-11-12] MEDS: SMZ/TMP 800/160MG TABLET. PO SCH (08:26)
[2017-11-12] MEDS: IV 1/2 NORMAL SALINE 1,000 ML IV SCH (08:30)
[2017-11-12] MEDS: INSULIN GLARGINE 300 UNITS/3 ML INSULN.PEN. SQ SCH (08:35)
[2017-11-12] MEDS: METOPROLOL TART IMMED RELEASE 25 MG TABLET. PO SCH (08:36)
[2017-11-12] MEDS: hydroCHLOROthiazide 12.5 MG CAPSULE PO SCH (08:36)
[2017-11-12] MEDS: LISINOPRIL 20 MG TABLET PO SCH (08:36)
--- NOTE | 2017-11-12 10:43 | PDOC ---
REGINA POSADAS [employer]ATION SUPERVISOR 11/12/17 1043: SUBJECTIVE Subjective Patient ready to go home. She intends to make the follow up appointment that has been arranged for her. OBJECTIVE Objective Physical Exam: General appearance: Alert and Oriented Head: Normocephalic, without obvious abnormality Eyes: conjunctivae/corneas clear. PERRL, EOM's intact. Fundi benign Lungs: regular respirations, non labored breathing Vital Signs Vital Signs Date Time Temp Pulse Resp B/P (MAP) Pulse Ox O2 Delivery O2 Flow Rate FiO2 11/12/17 08:36 55 114/50 11/12/17 08:36 55 114/50 11/12/17 08:00 Room Air 11/12/17 07:00 98.1 55 20 114/50 (71) 92 Room Air 98.1 11/12/17 02:40 71 18 125/69 (87) 99 Room Air 11/11/17 22:49 98.2 58 17 141/62 (88) 97 Room Air 98.2 11/11/17 20:21 60 118/43 11/11/17 20:00 Room Air 11/11/17 19:00 98.0 65 18 137/52 (80) 95 Room Air 98.0 11/11/17 14:35 97.9 60 20 118/43 (68) 97 Room Air 97.9 11/11/17 10:57 98.3 53 18 136/49 (78) 96 Room Air 98.3 I & O Intake and Output 11/12/17 07:00 Intake Total 1240 ml Balance 1240 ml Intake Oral 1240 ml # Voids 7 PHYSICAL EXAM Physical Exam Physical Exam: General appearance: Alert and Oriented Head: Normocephalic, without obvious abnormality Eyes: conjunctivae/corneas clear. PERRL, EOM's intact. Fundi benign Lungs: regular respirations, non labored breathing ASSESSMENT/PLAN Assessment/Plan Right flank pain and UTI: pt was on the wrong antibiotic for a few days and has just now been switched to the correct one. Her condition should improve with this CT scan from a few days shows some perinephric edema and patient continues to have flank pain and LLQ pain despite days of treatment-Renal US yesterday showed some improvement of this hydronephrosis. KUB showed stone still stable. A follow up appointment with Dr. Solis has been secured to discuss stone prevention with her on 12/02/17 at 1100 am. Pt given appointment card and new patient paperwork yesterday. She was reminded of this. Flank pain and mild hydronephrosis likely due to left pyelonephritis - Recommend she discharge home with appropriate Oral antibiotics to cover her for this. Non-obstructive 1,1 cm left kidney stone would likely benefit from treatment after infection treatment completed. Will discuss further at followup visit in approx 2 weeks - probably will proceed with outpatient ESWL per Dr. Solis. He can review this with patient when she follows up on 12/02. Ok to discharge home from a Urology perspective, please call with questions or change in patient condition. COMMENT Lab Laboratory Tests Test 11/11/17 11:21 11/11/17 11:59 11/11/17 17:08 11/11/17 20:53 Glucose (Fingerstick) 101 mg/dL (70-99) 93 mg/dL (70-99) 80 mg/dL (70-99) 232 mg/dL (70-99) Test 11/12/17 07:51 Glucose (Fingerstick) 136 mg/dL (70-99) Imaging Renal US IMPRESSION: Interval improvement in the left hydronephrosis. ALEKSEY SOLIS MD 11/12/17 1119: ASSESSMENT/PLAN Assessment/Plan Agree with assessment and plan. REGINA POSADAS APRN Nov 12, 2017 10:43 ALEKSEY SOLIS MD Nov 12, 2017 11:19
[2017-11-12 11:00] VITALS: BP 106/68
--- NOTE | 2017-11-12 22:00 | DS ---
DATE OF DISCHARGE: 11/12/2017 PRIMARY DIAGNOSIS: Left pyelonephritis. ADDITIONAL DIAGNOSES: Leukocytosis, diabetes, peripheral neuropathy, hypokalemia. CHIEF COMPLAINT AND HISTORY OF PRESENT ILLNESS: This 72-year-old female was seen with her on the day of admission. She did have symptoms going back a week prior to admission with urinary frequency, urgency and dysuria. Over the last day or so, she has become sick with chilling, sweating, decreased appetite, severe left flank pain. Dipstick UA in the office showed minimal blood with large amounts of leukocyte esterase and nitrites. She had severe left flank tenderness to palpation. It was felt that she had a pyelonephritis. They wanted to try oral at home, and she was given a prescription for antibiotics, but to call if worse. She called within a couple of hours or so stating that they do not think that they could deal it at home, and she was admitted for IV antibiotics. SUMMARY OF STAY: The patient was admitted. CT scanning was done showing 1.1 cm nonobstructing large left renal stone. She had diffuse left renal edema and perinephric inflammation with dilated collecting system without obstructing left ureteral stone. Findings they felt were most consistent with a recently passed stone or diffuse pyelonephritis. Clinically, she was felt to have pyelonephritis. She was treated with IV Levaquin until cultures became available with the patient gradually, improving on the same. Culture came back as coagulase-negative Staph; however, resistant to Levaquin, and [facility] and continued to improve. Because of the improvement without the correct antibiotics, I asked Urology to see in consultation. They concurred they thought this was a pyelonephritis and did a renal ultrasound, which showed interval improvement of the left hydronephrosis. It was felt by them that she can go home on oral Bactrim on the day of discharge with close outpatient followup and this was accomplished. DISPOSITION: The patient is discharged to home. DIET: ADA diet. ACTIVITY: As tolerated. FOLLOWUP: Office in 1 week. DISCHARGE MEDICATIONS: Listed on the med rec and have been addressed. GERI ANGUIANO MD DR: ENRICO/jessica JOB#: [id number] / [id number]
== END 2017-11-12 13:03 | disposition home or self-care (01) | DRG 690 ==
LOC: 5 SOUTH 14:45
PROVIDERS: ADMIT Family Medicine; ATTEND Family Medicine
DX: N10 Acute pyelonephritis (principal); N13.6 Pyonephrosis; E87.6 Hypokalemia; I25.10 Atherosclerotic heart disease of native coronary artery without angina pectoris; Z16.23 Resistance to quinolones and fluoroquinolones; Z96.651 Presence of right artificial knee joint; G89.29 Other chronic pain; E11.42 Type 2 diabetes mellitus with diabetic polyneuropathy; Z79.4 Long term (current) use of insulin; Z87.442 Personal history of urinary calculi; Z79.899 Other long term (current) drug therapy
CPT/HCPCS: 36415; 70450; 74018; 74177; 76770; 80048; 80053; 81001; 82962; 85025; 87086; 87186; J1815; J1956; J2405; J3010

== ENCOUNTER → 2018-02-10 | Outpatient (CLI) | payer MEDICARE ==
[~2018-02-10] MED LIST changes: +NITR0.4T22 SL
--- NOTE | 2018-02-12 09:02 | RAD ---
AP abdomen x-ray HISTORY: Kidney stone. COMPARISON: AP abdomen x-ray February 10, 2018. FINDINGS: Left renal lower pole demonstrates a 3 cm collection of radiopaque calculi. Tiny calcifications at the pelvis most likely phleboliths similar to prior x-rays and CT imaging. Upper abdomen and lung bases are outside the [id number]-[id number]. Cholecystectomy clips. Mild volume of stool. No dilated bowel loops. Lumbar scoliosis and chronic disc disease changes. IMPRESSION: Left renal calculi. Electronically signed by: Nathan Valdes MD (02/12/2018 8:58 AM) [facility]
== END | disposition home or self-care (01) ==
LOC: RAD 10:16
PROVIDERS: ATTEND Urology
DX: N20.0 Calculus of kidney (principal)
CPT/HCPCS: 74018

== ENCOUNTER → 2018-06-02 | Outpatient (CLI) | payer MEDICARE ==
[~2018-06-02] MED LIST changes: +APIX5TAB PO; +DILT240C82 PO; +HYDR-3164 PO; +MECL12.52 PO
--- NOTE | 2018-06-02 11:54 | RAD ---
Abdominal radiograph June 02, 2018 INDICATION: Kidney stone. COMPARISON: Abdominal radiograph February 10, 2018 TECHNIQUE: Single supine view of abdomen is provided. FINDINGS: Surgical clips are identified in the right upper quadrant compatible with prior cholecystectomy. There are no dilated loops of small or large bowel. There is calcification projecting over the expected region of the medial left renal shadow measuring up to 2.1 cm. Findings may represent fragmented renal calculi. No definite calculi are identified along the expected course of the ureters or urinary bladder. Phleboliths are identified within the pelvis. There is S-shaped scoliosis of the thoracolumbar spine. Findings are stable. IMPRESSION: Calcification projects over the medial left renal shadow, not significantly changed since prior examination. Consideration may be given for fragmented renal calculi in this region. Further evaluation with CT abdomen/pelvis without contrast may be of benefit. Electronically signed by: Elena Lobato MD (06/02/2018 11:51 AM) [id number]
== END | disposition home or self-care (01) ==
LOC: RAD 09:01
PROVIDERS: ATTEND Urology
DX: I87.8 Other specified disorders of veins (principal); M41.85 Other forms of scoliosis, thoracolumbar region; Z90.49 Acquired absence of other specified parts of digestive tract
CPT/HCPCS: 74018

== ENCOUNTER 2018-06-29 07:26 | Day surgery (SDC) | payer MEDICARE ==
[~2018-06-29 07:26] MED LIST changes: +CIPROFLOXACIN 400MG PREMIX 200 ML IV ONE; +IOHEXOL 300 MG/ML 100ML VIAL. ONE; +LIDOCAINE 2% JELLY 6ML IN APPLICATOR. ONE
[2018-06-29] MEDS ORDERED: IV RINGERS,LACTATED 1000ML 1,000 ML IV SCH (08:22)
[2018-06-29] MEDS ORDERED: LIDOCAINE 1% PF 2 ML VIAL. ID PRN (08:30)
[2018-06-29] MEDS ORDERED: LIDOCAINE 2% PF 5 ML VIAL. ONE (08:56)
[2018-06-29] MEDS ORDERED: PROPOFOL 20 ML IV ONE (08:56)
[2018-06-29] MEDS ORDERED: DEXAMETHASONE SOD PHOS 20 MG/5 ML VIAL. ONE (08:56)
[2018-06-29] MEDS ORDERED: ONDANSETRON PF 4 MG/2 ML VIAL. ONE (08:56)
[2018-06-29] MEDS ORDERED: SEVOFLURANE 61 TO 120 MINUTES. IH ONE (08:56)
--- NOTE | 2018-06-29 11:15 | PDOC4 ---
OPERATIVE NOTE Date: Date: Jun 29, 2018 Pre-Op Diagnosis: left renal stone Post-Op Diagnosis: left renal pelvis stone left lower pole stone Procedure Performed: cysto, left urs w laser/stent Surgeon: Dr. Yao Anesthesia Type: ga Blood Loss: 1ml Specimans Obtained: stone Findings: easily bleeding mucosa renal pelvis, LLP stone. Upper pole parenchyma calcification Complications: none evident GIANA YAO MD Jun 29, 2018 11:15
--- NOTE | 2018-06-29 11:18 | DISCH ---
DISCHARGE INSTRUCTIONS Condition on Discharge Condition on Discharge: Stable Activity After Discharge Activity Instructions for Disc: Activity as tolerated Bathing Instructions: Shower-keep dressing dry Lifting Instructions after Dis: No heavy lifting Driving Instructions after Dis: Do not drive today Weight Bearing Status after Di: As tolerated Diet after Discharge Diet after Discharge: Diabetic No Calorie Level Diet Texture: Regular Liquid Texture: Thin Liquid Wound Incision Care Wound/Incision Care: Ice to area for comfort Checks after Discharge Checks after discharge: Check blood press - daily, Check blood sugar, ac/hs Contacting the DRAdrianna after DC Call your doctor for: If your condition worsens Follow-Up Follow up with: in 2 weeks for cysto, left stent pull Treatment/Equipment after DC Adaptive Equipment Issued: None GIANA OLIVIA MD Jun 29, 2018 11:18
[2018-06-29] MEDS ORDERED: HYDROcodone/APAP 5/325MG 1 TAB TABLET PO ONE (12:15)
--- NOTE | 2018-06-29 12:29 | OP ---
DATE OF SURGERY: 06/29/2018 PREOPERATIVE DIAGNOSIS: Left renal stone. POSTOPERATIVE DIAGNOSES: 1. Left renal pelvis stone. 2. Left lower pole stone. SURGEON: Mandie Yao M.D. PROCEDURE: Left ureteroscopy with laser lithotripsy and stent exchange. CONDITION: Stable. COMPLICATIONS: None. ESTIMATED BLOOD LOSS: 1 mL. FINDINGS: 1. Left renal pelvis stone, about 8 mm. 2. Left lower pole stone, also about 8 mm. 3. Several denatured clots with fluffy appearance were seen around the stones and around the kidney. These were hand irrigated, which added to the allotted time for the procedure. SPECIMENS: Stones. DESCRIPTION OF PROCEDURE: The patient was taken back to the procedure room and placed under general anesthesia in supine position per the protocol. She was prepped and draped in the usual sterile fashion in the dorsal lithotomy position. A timeout was performed. SCDs were attached. IV antibiotics were administered. A 21-Sudanese rigid cystoscope was advanced per urethra into the bladder. Pre-existing stent was visualized and grasped and brought to the meatus. This was cannulated with a sensor wire all the way to the kidney. Dual-lumen ureteral catheter was used to place the working wire. Safety wire was attached to the drape. A 12/14, 36-cm ureteral access sheath was advanced all the way to the proximal ureter. Flexible ureteroscope was advanced all the way into the kidney. There was an obvious mass of denatured clot versus a fungus ball. This was lasered to smaller pieces and was irrigated. At the center of it, there was a stone, which was pulverized into smaller pieces. These were grasped with a 1.9, 0 tip nitinol basket. Upon fluoroscopy, there was an upper pole calcification. Careful inspection of the upper collecting system visualized this was not a collecting system, but a parenchymal location. Under fluoroscopy, I managed to visualize another fragment in the lower pole. This was difficult to reach, but I managed to do so and it was pulverized with the laser fiber again. All potential obstructive pieces were removed. The rest of them were too small to be grasped and deemed not endoscopically obstructive. Given the amount of instrumentation, I decided to leave the stent in place. Also, we had poor visualization throughout most of the case due to her being on anticoagulation. The stent was placed in an endourological fashion with a 6 x 26 stent with loops confirmed in the kidney and the bladder. Bladder was emptied. The patient was awakened and taken to PACU in stable condition. DISPOSITION: We will send her home with pain medication and antibiotic. She will follow up with me in 2 weeks for stent removal. MANDIE YAO MD DR: TEMI/jessica JOB#: [id number] / [id number] DELVIN
[2018-06-29 12:47] VITALS: BP 135/66
--- NOTE | 2018-06-30 09:07 | PATHOLOGY ---
[facility] Accession Number: [id number] . 01 Material submitted: . kidney - LEFT KIDNEY STONES. Modifiers: left . 01 Clinical history: . left kidney stones . 02 Diagnosis: Kidney stones: - Consistent with calculi. Specimen is sent out for further processing. Report pending outside analysis. MBR/06/29/2018 . 02 Electronically signed: . Sachin Christina MD, Pathologist NPI- [id number] . 01 Gross description: . The specimen is received fresh, labeled "Vikas, Qi, kidney stones". Received are 3 brown calculi measuring between 0.4 cm and 0.5 cm. The specimen is forwarded to sendouts for further processing. (SDY; 06/29/2018) SYU/SYU . 02 Pathologist provided ICD-10: N20.0 . 02 CPT . 930724 Specimen Comment: A courtesy copy of this report has been sent to Specimen Comment: [phone], . Specimen Comment: Report sent to / DR ANGUIANO Specimen Comment: A duplicate report has been generated due to demographic updates. Performed at: 01 [facility] [address], [place] [id number] MD Matthew Kapoor MD Phone: [phone] Performed at: 02 [facility] [place] [facility] [address] [place], [place] [id number] MD Sachin Christina MD Phone: [phone]
== END 2018-06-29 12:47 | disposition home or self-care (01) ==
LOC: SURG 07:26
PROVIDERS: ATTEND Urology
DX: N20.0 Calculus of kidney (principal); E11.9 Type 2 diabetes mellitus without complications; Z88.6 Allergy status to analgesic agent; Z79.899 Other long term (current) drug therapy; Z90.710 Acquired absence of both cervix and uterus; Z98.890 Other specified postprocedural states; Z79.82 Long term (current) use of aspirin; Z87.440 Personal history of urinary (tract) infections; Z83.3 Family history of diabetes mellitus; Z82.49 Family history of ischemic heart disease and other diseases of the circulatory system; Z82.3 Family history of stroke; Z72.89 Other problems related to lifestyle; Z98.42 Cataract extraction status, left eye; Z98.41 Cataract extraction status, right eye; Z96.1 Presence of intraocular lens; Z79.84 Long term (current) use of oral hypoglycemic drugs
CPT/HCPCS: 52356; 76000; 82365; 82962; 88300; A7015; C1713; C1769; C1776; C2617; J0744; J1100; J2001; J2405; J2704; Q9967

== ENCOUNTER → 2020-01-17 | Outpatient (CLI) | payer MEDICARE, MEDICAID ==
[~2020-01-17] MED LIST changes: -CIPROFLOXACIN 400MG PREMIX 200 ML IV ONE; +DILT240C33 PO; -DILT240C82 PO; -GLIM4TAB2 PO; +GLIM4TAB8 PO; -IOHEXOL 300 MG/ML 100ML VIAL. ONE; -LIDOCAINE 2% JELLY 6ML IN APPLICATOR. ONE; +LISI1TAB37 PO; -LISI1TAB5 PO; -MECL12.52 PO; +MECL12.573 PO
--- NOTE | 2020-01-17 14:39 | KCIC ---
EXAMINATION: Magnetic resonance imaging (MRI) of the lumbar spine without contrast 01/17/2020 11:00 AM HISTORY: Lumbar radiculopathy TECHNIQUE: Multiplanar multi-weighted MRI of the lumbar spine was performed without intravenous contrast using the standard lumbar spine protocol. Contrast information: None administered. COMPARISON: None available. FINDINGS: There is dextroconvex scoliosis of the lumbar spine with apex dextrocurvature at L2-L3. There is grade 1 retrolisthesis of L2 on L3. Vertebral body heights are maintained. Modic type II endplate degenerative changes are identified at L1-L2. Modic type III endplate degenerative changes are identified at L2-L3 asymmetric to the left. There is moderate disc height loss at L2-L3 and L4-L5. Mild disc height loss at L1-L2. Moderate intramarginal osteophytosis noted at L2-L3 and L4-L5. Conus medullaris terminates at T12-L1. Distal spinal cord signal intensity is normal in all sequences. Abdominal aorta is normal in course and caliber. No suspicious sacral abnormality is identified. Versus portions of the retroperitoneum appear normal.. T12-L1: There is mild disc bulge asymmetric to the right. Moderate right and mild left facet arthropathy. Moderate right and mild left neuroforaminal stenosis. No spinal canal stenosis. L1-L2: There is a circumferential disc bulge with right foraminal disc protrusion, similar to the prior examination. There is severe bilateral neuroforaminal stenosis. Mild spinal canal stenosis, not significantly changed. L2-L3: There is a moderate circumferential disc bulge. There is moderate right and mild to moderate left facet arthropathy. Moderate bilateral neuroforaminal stenosis. No significant spinal canal stenosis. Findings are stable. L3-L4: There is a moderate disc bulge with right far lateral disc protrusion. Moderate bilateral neural foraminal stenosis. Mild spinal canal stenosis, not significant changed. L4-L5: There is a circumferential disc bulge with right far lateral disc protrusion. There is moderate facet arthropathy. Moderate right and mild left neuroforaminal stenosis. No spinal canal stenosis. Findings are stable. L5-S1: Mild disc bulge. Mild/moderate facet arthropathy. No neuroforaminal or spinal canal stenosis. IMPRESSION: Dextro convex scoliosis of the lumbar spine with minimal retrolisthesis of L2 on L3. Moderate degenerative changes of lumbar spine are not significantly changed since prior examination from 04/11/2014 as described in detail above. Electronically signed by: Elena Lobato MD (01/17/2020 2:36 PM) [id number]
== END ==
LOC: KCIC MRI 10:50
PROVIDERS: ATTEND Orthopaedic Surgery
DX: M47.26 Other spondylosis with radiculopathy, lumbar region (principal); M41.86 Other forms of scoliosis, lumbar region; M47.818 Spondylosis without myelopathy or radiculopathy, sacral and sacrococcygeal region
CPT/HCPCS: 72148

== ENCOUNTER → 2020-06-12 | Outpatient (CLI) | payer OTHER, MEDICAID ==
[~2020-06-12] MED LIST changes: +CELE200C PO; +DIGO125T3 PO; +LISI2.5T PO; -MECL12.573 PO; +MECL12.582 PO
--- NOTE | 2020-06-12 12:31 | PDOC1 ---
INITIAL PAIN CONSULT DATE OF SERVICE: DOS: DATE: 06/12/20 TIME: 12:25 CHIEF COMPLAINT: Chief Complaint: Low back and bilateral lower extremity pain HISTORY OF PRESENT ILLNESS: 75-year-old female presents history of pain low back bilateral lower extremity slightly more the left than the right but present bilaterally pain the low back rating the posterior bilateral lower extremities in the gluteus posterior thighs posterior calves worse with walking standing specially changing positions getting up from a seated position patient reports has been going on since March of this year for about 4 months without any specific injury or accident she is aware of patient reports it is worse with walking and standing better with sitting or laying down generally does not awaken her from sleep at night but has started to over the past few weeks patient reports is not effective bowel bladder control does affect her ability walk significantly she has a cane and a walker which she uses and is in wheelchair today for convenience. Patient has had some physical therapy in the past but nothing recently doing some stretching daily but nothing other than that. Patient has tried oral analgesics such as Motrin and Aleve without significant decrease in pain as well patient reports the pain is sharp and constant in the low back radiating shooting and stabbing in the lower extremities again slightly worse on the left than the right and much worse with weightbearing. Patient rates her disability rating 0- 10 10 being worst is a 9 with family home responsibilities and social activity 5 with self-care and 8 with life support activities. Patient did have MRI of the lumbar spine showing moderate degenerative changes not significantly changed since 2014 however with moderate segmental disc bulge L2-3 L34 with right later al disc retrusion at L3-4 and bilateral moderate neural foraminal stenosis L4-5 shows circumferential disc bulge with far right lateral disc protrusion and moderate facet hypertrophy moderate right and mild left neuroforaminal stenosis. Patient reports no loss of motor function but significant fatigability with the lower extremities and is causing her balance to be off as well. PAST MEDICAL HISTORY: PMH: Diabetes, hearing loss, hypertension, atrial fibrillation, arthritis, dizziness, peripheral neuropathy, hyperlipidemia PREVIOUS SURGERIES: Past Surgical Hx: Cholecystectomy, total knee arthroplasty on the right, partial hysterectomy, right shoulder surgery, previous kidney stone extractions CURRENT MEDICATIONS: Current Meds: Active Scripts Medications Dose Route/Sig Max Daily Dose Days Date Category Diltiazem 24Hr Cd (Diltiazem HCl) 240 Mg Cap.er.24h 240 Mg PO DAILY 06/28/18 Reported [place] 5-325 Tablet (Acetaminophen/Hydrocodone Bitart) 1 Each Tablet 1 Tab PO PRN Q6HRS PRN 06/28/18 Reported Meclizine Hcl 12.5 Mg Tablet 1 Tab PO TID 06/28/18 Reported Glimepiride 4 Mg Tablet 1 Tab PO DAILY 02/24/17 Reported Atorvastatin Calcium 20 Mg Tablet 1 Tab PO DAILY 02/24/17 Reported Marcos Solostar (Insulin Glargine,Hum.rec.anlog) 300 Unit/1 Ml Insuln.pen 50 Unit SQ DAILY 02/24/17 Reported ALLERGIES; Allergies: Coded Allergies: fentanyl (Verified Allergy, Severe, 06/28/18) Patient became unresponsive after dose of fentanyl given FAMILY HISTORY: Family Hx: Diabetes SOCIAL HISTORY: Social Hx: Patient drinks alcohol very occasionally does not smoke or use any illegal illicit recreational drugs is lives with her spouse lives locally in [facility] and is retired. REVIEW OF SYSTEMS: ROS: Positive for those items mentioned in history of present illness, all systems are reviewed, otherwise negative ,and are complete full and well-documented on patient's chart. PHYSICAL EXAM: VS: Blood pressure is 147/64 pulse 56 respirations 16 temperature is 97.9 F height 5 foot 1 his weight is 206 pounds PE: PHYSICAL EXAMINATION: GENERAL: The patient is awake, alert, oriented, appropriate, very pleasant demeanor HEENT: Shows normocephalic, atraumatic. Extraocular movements are intact and symmetrical. Oral cavity: Mucous membranes moist and pink. NECK: Shows anterior throat supple without palpable lymphadenopathy noted. Swallow reflex symmetrical. CHEST: Shows normal on inspection. Breath sounds are clear bilaterally, distant but no rales or rhonchi. HEART: Shows S1, S2 clear. No murmurs auscultated. ABDOMEN: Soft, nontender, nondistended, obese. No palpable organomegaly is noted. No rebound or guarding demonstrated. BACK: Shows spine grossly in the midline. Normal-appearing cervical lordotic curvature. There is slightly increased thoracic kyphosis, some minor flattening of the lumbar lordotic curvature. Lumbar paraspinous muscles show symmetrical on inspection, on palpation shows some moderate tenderness diffusely throughout the upper, middle and lower distribution of the paraspinous muscles bilaterally and also into the lower thoracic paraspinous musculature, firm and tender, but without specific trigger points, without radiation of pain. The patient has good rotational motion of the lumbar spine, both laterally as well as extension and flexion without significant difficulty. No tenderness over the spinous processes, sacrum or sacroiliac regions. EXTREMITIES: Lower extremities show deep tendon reflexes 1+ in the patellar and tendo calcaneus tendons. Motor exam is 4 on a scale of 5 with right dorsiflexion, extension, quadriceps and hamstring flexion and 4/5 on the left. Peripheral pulses are 1+ posterior tibial. No peripheral edema is noted bilaterally. Lower extremities are warm and dry to touch, equal in color and appearance. Straight leg raise noted to be [] on the right about 40 degrees, left side is positive at approximately 40 degrees as well, both the crease with knee flexion. Gaenslen's and Raphael's maneuvers are negative bilaterally. The patient is able to stand but needs help standing from a seated position walks with a shuffling gait is not appear to favor the right or left lower extremity differently but is very unstable on her feet and requires a cane in her right hand to ambulate even for short distance in the office. SKIN: Shows warm and dry, good turgor. No edema. No sores, rashes or bruising throughout. IMPRESSION: Impression: 75-year-old female with approximate 4-month history increasing pain low back bilateral lower extremities and radicular fashion MRI scan lumbar spine as noted Diabetes Hypertension Arthritis Plan: Options were discussed with the patient patient's granddaughter who accompanied her visit today. We discussed conservative medical management physical therapy as well as interventional techniques. Patient would like to pursue interventional techniques. We discussed a lumbar epidural steroid injection using description as well as anatomical models to describe the procedure. Patient will wait for clearance with her professor of biostatistics to see if it is deemed safe and appropriate to hold her Eliquis for 3 days prior to potential lumbar epidural steroid injection. In the meantime we will try Medrol Dosepak patient given instructions well side effects beware of especially increased blood glucose with the medication. CHARI SANTOS MD Jun 12, 2020 12:31
== END | disposition home or self-care (01) ==
LOC: PNCL 10:21
PROVIDERS: ATTEND Anesthesiology
DX: M54.5 Low back pain (principal); M79.605 Pain in left leg; M79.604 Pain in right leg; I10 Essential (primary) hypertension; I48.91 Unspecified atrial fibrillation; M19.90 Unspecified osteoarthritis, unspecified site; E11.42 Type 2 diabetes mellitus with diabetic polyneuropathy; E78.00 Pure hypercholesterolemia, unspecified; E66.9 Obesity, unspecified; Z90.49 Acquired absence of other specified parts of digestive tract; Z90.710 Acquired absence of both cervix and uterus; Z98.890 Other specified postprocedural states; Z79.899 Other long term (current) drug therapy; Z79.4 Long term (current) use of insulin; Z88.6 Allergy status to analgesic agent; Z72.89 Other problems related to lifestyle
CPT/HCPCS: G0463

== ENCOUNTER → 2020-07-05 | Outpatient (CLI) | payer OTHER, MEDICAID ==
[~2020-07-05] MED LIST changes: +IOHEXOL 180 MG/ML 10 ML VIAL. ONE; +methylPREDNISolone ACETATE 40 MG/ML VIAL. ONE; +methylPREDNISolone ACETATE 80 MG/ML VIAL. ONE
--- NOTE | 2020-07-05 10:09 | PDOC ---
Progress Note - Pain Clinic Date of Service: DOS: DATE: 07/05/20 TIME: 10:07 Diagnosis: Dx: Lumbar radiculopathy with lumbar degenerative disc disease History or Present Illness: HPI: 75-year-old female returns for follow-up status post initial valuation and preauthorization for lumbar epidural steroid injection. Patient is obtained authorization and would like to proceed. Patient also been off her Eliquis after cleared with her floor manager for the last 3 days. Patient reports pain is still in the low back bilateral lower extremities more on the left than the right but present bilaterally aching and sharp and shooting tingling and burning in the back cramping and stabbing in the legs as well patient reports it can be unbearable at times is on and off in intensity worse with walking standing better with sitting or laying down generally does not awaken her from sleep at night but does occasionally patient reports is a 10 on scale 10 is worse over the past week 10 on average 9 its least is a 10 today. Patient reports no new motor or sensory deficits no new bowel or bladder incontinence or other complaints. Physical Exam: VS: Blood pressure is 167/63 pulse 67 respirations 18 temperature 98.8 F height is 5 foot 3 inches weight is 198 pounds PE: PHYSICAL EXAMINATION: GENERAL: The patient is awake, alert, oriented, appropriate, very pleasant nba anor HEENT: Shows normocephalic, atraumatic. Extraocular movements are intact and symmetrical. Oral cavity: Mucous membranes moist and pink. NECK: Shows anterior throat supple without palpable lymphadenopathy noted. Swallow reflex symmetrical. CHEST: Shows normal on inspection. Breath sounds are clear bilaterally. HEART: Shows S1, S2 clear. No murmurs auscultated. ABDOMEN: Soft, nontender, nondistended, obese. No palpable organomegaly is noted. BACK: Shows spine grossly in the midline. Normal-appearing cervical lordotic curvature. There is slightly increased thoracic kyphosis, some minor flattening of the lumbar lordotic curvature. Lumbar paraspinous muscles show symmetrical on inspection, on palpation shows some moderate tenderness diffusely throughout the upper, middle and lower distribution of the paraspinous muscles, but without specific trigger points, without radiation of pain. The patient has good rotational motion of the lumbar spine, both laterally as well as extension and flexion without significant difficulty. EXTREMITIES: Lower extremities show deep tendon reflexes 1+ in the patellar and tendo calcaneus tendons. Motor exam is 4 on a scale of 5 with right dorsiflexion, extension, quadriceps and hamstring flexion and 4/5 on the left. Peripheral pulses are 1+ posterior tibial. No peripheral edema is noted bilaterally. Lower extremities are warm and dry to touch, equal in color and appearance. SKIN: Shows warm and dry, good turgor. No edema. No sores, rashes or bruising throughout. Procedure: Procedure: Options discussed with the patient. Patient's old chart was reviewed as her current medication regimen updated current review of systems updated today as well. We will proceed with a lumbar epidural steroid injection today with fluoroscopic guidance. Risks were discussed including but not limited to: Bleeding, infection, possibility of epidural hematoma and subsequent neurological compromise, dural puncture, headaches, spinal cord and/or nerve damage, side effects of steroid medication, and poor results regarding pain control. Patient understands and wished to proceed. She will return to the clinic in approximate 2 weeks for follow-up, was counseled as return appointment activity level and side effects to be aware of. Medication Injected: Med Injected: Procedure is lumbar epidural steroid injection under local anesthetic using sterile prep and drape at the L4-5 level using C-arm fluoroscopic guidance in both AP and lateral views medications injected is 120 mg Depo-Medrol + 10 mL preservative-free normal saline and 2 mL contrast- condition at discharge is stable patient tolerated procedure well had no complications. Condition at Discharge: Condition at Discharge: Condition at discharge is stable, patient tolerated procedure well and had no complications. CHARI SANTOS MD Jul 05, 2020 10:09
--- NOTE | 2020-07-05 10:10 | PDOC4 ---
PROCEDURE Procedure Patient was consented for lumbar epidural steroid injection. Risks were dis cussed including but not limited to: Bleeding, infection, possibility of epidural hematoma and subsequent neurological compromise, dural puncture, headaches, spinal cord and/or nerve damage, side effects of steroid medication, and poor results regarding pain control. Patient understands and wished to proceed. Procedure is lumbar epidural steroid injection under local anesthetic using sterile prep and drape at the L4-5 level using C-arm fluoroscopic guidance in both AP and lateral views medications injected is 120 mg Depo-Medrol + 10 mL preservative-free normal saline and 2 mL contrast- condition at discharge is stable patient tolerated procedure well had no complications. CHARI SANTOS MD Jul 05, 2020 10:10
== END | disposition home or self-care (01) ==
LOC: PNCL 09:43
PROVIDERS: ATTEND Anesthesiology
DX: M51.16 Intervertebral disc disorders with radiculopathy, lumbar region (principal); I10 Essential (primary) hypertension; E78.00 Pure hypercholesterolemia, unspecified; I48.91 Unspecified atrial fibrillation; E66.9 Obesity, unspecified; M19.90 Unspecified osteoarthritis, unspecified site; E11.42 Type 2 diabetes mellitus with diabetic polyneuropathy; Z90.49 Acquired absence of other specified parts of digestive tract; Z90.710 Acquired absence of both cervix and uterus; Z98.890 Other specified postprocedural states; Z72.89 Other problems related to lifestyle; Z79.4 Long term (current) use of insulin; Z79.899 Other long term (current) drug therapy; Z88.6 Allergy status to analgesic agent
CPT/HCPCS: 62323; J1030; J1040; Q9965